=== PATIENT | female | born 1990 | race Caucasian/White ===

== ENCOUNTER 2017-02-20 12:26 | Emergency (ER) | payer BC, OTHER ==
[~2017-02-20 12:26] MED LIST: EFFEXOR37.5 MG PO; NAPROXEN PO; ZOFRAN PO
[2017-02-20] MEDS ORDERED: ZOMIG5 MG (12:35)
== END 2017-02-20 13:44 | disposition home or self-care (01) ==
LOC: SED 12:26
DX: G43.909 Migraine, unspecified, not intractable, without status migrainosus (principal)
CPT/HCPCS: 99283; J1170; J2550